=== PATIENT | male | born 1965 | race Caucasian/White ===

== ENCOUNTER 2019-06-17 00:44 | Emergency (ER) | payer SELFPAY ==
[2019-06-17] MEDS ORDERED: diphenhydrAMINE 50 MG/ML VIAL ONE (01:31)
[2019-06-17] MEDS ORDERED: Metoclopramide HCl 10 MG/2 ML VIAL ONE ×2 (01:31→01:36)
[2019-06-17] MEDS ORDERED: Ketorolac Tromethamine 30 MG/ML VIAL ONE (01:31)
[2019-06-17] MEDS ORDERED: Sodium Chloride 0.9% 1,000 ML ONE (01:31)
[2019-06-17 01:45] LABS: Base Excess-Venous -2.9 mmol/L (-2.0 to 3.0); Bicarbonate (HCO3v) 20.7 mmol/L (22.0-28.0); Calcium, Ionized 0.92 mmol/L (See Comments:); Chloride 95 mmol/L (98-107); Hemoglobin - Calc 18.2 g/dL (14.0-18.0); Potassium 5.1 mmol/L (3.5-5.1); Sodium 124 mmol/L (138-145); T. Carbon Dioxide 21.8 mmol/L (22.0-28.0)
[2019-06-17 01:49] LABS: Alcohol 101 mg/dL (Less than 10); Anion Gap 18 mmol/L (10-20); BUN (Urea Nitrogen) 12 mg/dL (8.4-25.7); Calc. Creatinine Clearance 0 mL/min (70-130); Calcium 8.8 mg/dL (7.8-10.44); Carbon Dioxide 21 mmol/L (22-29); Chloride 92 mmol/L (98-107); Estimated GFR-MDRD Greater than 90; Glucose 109 mg/dL (70-105); Potassium 4.6 mmol/L (3.5-5.1); Sodium 126 mmol/L (136-145)
[2019-06-17] MEDS ORDERED: Dexamethasone 20 MG/5 ML VIAL ONE (02:58)
--- NOTE | 2019-06-17 09:08 | CT ---
PRELIMINARY REPORT/[facility]/EMERGENCY AFTER HOURS PROCEDURE: EXAM: CT Head Without Contrast EXAM DATE/TIME: 06/17/2019 1:47 AM CLINICAL HISTORY: 53 years old, male; Pain; Migraine; Aura effect not specified; Does not respond to medication; With m igrainosus (>72 hrs & severe); Patient HX: Constant headache TECHNIQUE: Imaging protocol: Computed tomography images of the head without contrast. Coronal and sagittal refor matted images were created and reviewed. Radiation optimization: All CT scans at this facility use at least one of these dose optimization la hniques: automated exposure control; mA and/or kV adjustment per patient size (includes targeted exam s where dose is matched to clinical indication); or iterative reconstruction. COMPARISON: No relevant prior studies available. FINDINGS: Brain: Multiple intra-axial masses present. 2.9 x 2.6 cm mass right parietal lobe with extensive surrounding vasogenic edema. 11 x 10 mm high rig ht anterior frontal mass with surrounding edema. 15 x 13 mm high left parietal mass with surrounding edema. There is also prominent left parieto-occipital vasogenic edema in an area without visible mass, howev er an occult mass is suspected. Midline shift: No midline shift or axial herniation. Ventricles: No ventriculomegaly. Bones/joints: Unremarkable. No acute fracture. Sinuses: Visualized sinuses are unremarkable. No fluid levels. Mastoid air cells: Visualized mastoid air cells are well aerated. No mastoid effusion. Soft tissues: Other findings: IMPRESSION: Multifocal intra-axial brain masses with vasogenic edema. Most common differential considerations to include metastatic disease vs septic emboli. No hydrocephalus, midline shift, or visible hemorrhage. Thank you for allowing us to participate in the care of your patient. Dictated and Authenticated by: Remy Johns MD 06/17/2019 2:29 AM Central Time ([place] & [place]) Final report CT HEAD NONCONTRAST: Date: 06-17-19 Performed on emergency basis at 0148 hours. History: Headache. FINDINGS: I agree with the preliminary report by Dr. Johns from [facility]. Multiple intraaxial robin s near the rich white junction suggestive of metastatic disease with significant adjacent vasogenic e tano. Appropriate next step of imaging would be MRI brain with and without gadolinium contrast. POS: [facility]
== END 2019-06-17 03:42 | disposition left against medical advice (07) ==
LOC: NAV ERS 00:44
DX: G93.9 Disorder of brain, unspecified (principal); E87.1 Hypo-osmolality and hyponatremia; I10 Essential (primary) hypertension; F41.9 Anxiety disorder, unspecified; F32.9 Major depressive disorder, single episode, unspecified; F17.210 Nicotine dependence, cigarettes, uncomplicated; Z79.899 Other long term (current) drug therapy
CPT/HCPCS: 36415; 70450; 80048; 80307; 82330; 82803; 85014; 96361; 96374; 96375; J1100; J1200; J1885; J2765; J7050

== ENCOUNTER 2019-06-20 08:53 | Emergency (ER) | payer SELFPAY | END 2019-06-20 09:35 | disposition home or self-care (01) | LOC: NAV ERS 08:53 | DX: R51 Headache (principal); F41.9 Anxiety disorder, unspecified; F32.9 Major depressive disorder, single episode, unspecified; F17.210 Nicotine dependence, cigarettes, uncomplicated; Z79.899 Other long term (current) drug therapy | CPT/HCPCS: 99281 ==

== ENCOUNTER 2019-06-21 08:46 | Outpatient (CLI) | payer OTHER ==
[2019-06-21] MEDS ORDERED: Iopamidol 370 76% 100 ML VIAL ONE (09:00)
--- NOTE | 2019-06-21 10:14 | CT ---
Exam: Chest CT with contrast Abdomen CT with contrast Pelvic CT with contrast HISTORY: Lung cancer. Evaluate for metastases. Correlation: None COMPARISON: None FINDINGS: Chest CT: Mediastinum: No mediastinal mass, lymphadenopathy or hematoma. Aorta: Atherosclerosis. No aneurysm or dissection. Heart: Normal heart size. No significant pericardial fluid. There are coronary calcifications. Trachea and central bronchi: Patent Pleural spaces: No significant pleural fluid Right lung: Mild emphysematous changes. Left lung:Spiculated mass in the left upper lobe causing narrowing of the left upper lobe bronchus. M ass measures 3.0 cm mediolateral by 2.3 cm anterior posterior by 3.4 cm craniocaudal. There is a second spiculated mass in the posterior inferior left upper lobe, measuring 1.6 cm anterior posterior by 1.3 cm mediolateral by 1.4 cm craniocaudal. Pneumothorax: None Abdomen CT: Gallbladder: Contracted, likely due to a nonfasting state Portal vein: Patent Liver: Appropriate enhancement. Spleen: Appropriate enhancement Pancreas: Appropriate enhancement Adrenal glands: Appropriate enhancement Lymphadenopathy: No gastrohepatic, retrocrural or periportal lymphadenopathy Kidneys: Symmetric enhancement. No obstructive uropathy Mesentery: No mass, lymphadenopathy, free air or free fluid Alimentary canal: Umbilical hernia containing mesenteric fat. No bowel herniation. Limited evaluation . No evidence of bowel obstruction. Ileocecal junction is unremarkable. Normal caliber appendix. Diverticulosis, without evidence of diverticulitis. Mucosal thickening of the sigmoid colon and rectu m, likely due to inadequate distention Pelvis CT: Bladder wall thickening. Correlate for cystitis. Left inguinal hernia containing fat. No pelvic mass, lymphadenopathy, free air or free fluid Osseous structures:No lytic or blastic lesions in the osseous structures. IMPRESSION: 1. Two spiculated masses in the left upper lobe as described above, worrisome for malignancy. 2. Bowel wall thickening involving the left hemicolon likely due to inadequate distention. 3. Urinary bladder mucosal thickening. Correlate clinically. Transcribed Date/Time: 06/21/2019 11:27 AM
== END 2019-06-21 08:47 | disposition home or self-care (01) ==
LOC: NAV CT 08:46
PROVIDERS: ATTEND Internal Medicine
DX: C34.90 Malignant neoplasm of unspecified part of unspecified bronchus or lung (principal); N32.89 Other specified disorders of bladder; K63.89 Other specified diseases of intestine; R91.8 Other nonspecific abnormal finding of lung field
CPT/HCPCS: 71260; 74177; Q9967